=== PATIENT | female | born 1950 | race Caucasian/White ===

== ENCOUNTER 2021-08-04 07:30 | Day surgery (SDC) | payer OTHER, BC ==
[2021-07-30 13:00] VITALS: BMI 22.3
[2021-08-04] MEDS ORDERED: ceFAZolin SODIUM 1 GM VIAL ONE ×2 (08:56→09:33)
[2021-08-04] MEDS ORDERED: ERYTHROMYCIN 0.5% OPHTHALMIC OINTMENT 3.5 GM TUBE ONE (08:56)
[2021-08-04] MEDS ORDERED: TETRACAINE 0.5% OPHTH SOLN 2 ML BOTTLE ONE (08:56)
[2021-08-04] MEDS ORDERED: LIDOCAINE 1%/EPI 1:100000 (20 ML MULTI DOSE VIAL) ONE (08:57)
[2021-08-04] MEDS ORDERED: BUPIVACAINE HCL 50 ML ONE (08:57)
[2021-08-04] MEDS ORDERED: POVIDONE-IODINE 5% OPHTHALMIC PREP 30 ML SOLUTION ONE (08:57)
[2021-08-04] MEDS ORDERED: DEXAMETHASONE SOD PHOSPHATE 4 MG/1 ML VIAL ONE (09:33)
[2021-08-04] MEDS ORDERED: PROPOFOL 20 ML ONE ×2 (09:33)
[2021-08-04] MEDS ORDERED: MIDAZOLAM HCL 2 MG/2 ML SINGLE DOSE VIAL ONE ×2 (09:33→10:32)
[2021-08-04] MEDS ORDERED: ONDANSETRON 4 MG/2 ML VIAL ONE (09:33)
[2021-08-04] MEDS ORDERED: KETOROLAC TROMETHAMINE 30 MG/1 ML VIAL ONE (09:33)
[2021-08-04] MEDS ORDERED: KETAMINE HCL 200 MG/20 ML VIAL ONE (11:25)
[2021-08-04] MEDS ORDERED: ONDANSETRON 4 MG/2 ML VIAL IVPUSH PRN (11:58)
[2021-08-04] MEDS ORDERED: oxyCODONE HCL 5 MG TABLET PO PRN (11:58)
[2021-08-04] MEDS ORDERED: ACETAMINOPHEN 325 MG TABLET (FP) PO PRN (11:58)
[2021-08-04 13:35] VITALS: TEMP 98.3
[2021-08-04 14:11] VITALS: BP 127/65; PULSE 88
== END 2021-08-04 14:05 | disposition home or self-care (01) ==
LOC: FASU 07:30
PROVIDERS: ATTEND Ophthalmology
PROC: 0W020ZZ Alteration of Face, Open Approach (ICD-10-PCS; 2021-08-04)
PROC: 08SR0ZZ Reposition Left Lower Eyelid, Open Approach (ICD-10-PCS; principal; 2021-08-04 09:59)
PROC: 08SQ0ZZ Reposition Right Lower Eyelid, Open Approach (ICD-10-PCS; 2021-08-04 09:59)
DX: H04.223 Epiphora due to insufficient drainage, bilateral (principal); H02.102 Unspecified ectropion of right lower eyelid; H02.105 Unspecified ectropion of left lower eyelid; H00.15 Chalazion left lower eyelid; H00.14 Chalazion left upper eyelid; H02.403 Unspecified ptosis of bilateral eyelids
CPT/HCPCS: 94760

== ENCOUNTER 2022-08-10 06:06 | Day surgery (SDC) | payer OTHER, BC ==
[2022-08-05 10:29] VITALS: BMI 21.7
[2022-08-10] MEDS ORDERED: BUPIVACAINE HCL/PF 0.5% (5MG/ML) 10 ML VIAL ONE (07:09)
[2022-08-10] MEDS ORDERED: TETRACAINE 0.5% OPHTH SOLN 2 ML BOTTLE ONE (07:09)
[2022-08-10] MEDS ORDERED: LIDOCAINE 1%-EPI 1:100,000 30 ML MDV IJ ONE (07:09)
[2022-08-10] MEDS ORDERED: POVIDONE-IODINE 5% OPHTHALMIC PREP 30 ML SOLUTION ONE (07:09)
[2022-08-10] MEDS ORDERED: ceFAZolin SODIUM 1 GM VIAL ONE ×2 (07:09→07:48)
[2022-08-10] MEDS ORDERED: ERYTHROMYCIN 0.5% OPHTHALMIC OINTMENT 3.5 GM TUBE ONE (07:09)
[2022-08-10] MEDS ORDERED: MIDAZOLAM HCL 2 MG/2 ML SINGLE DOSE VIAL ONE ×2 (07:18→09:01)
[2022-08-10] MEDS ORDERED: PROPOFOL 20 ML ONE ×2 (07:18→08:33)
[2022-08-10] MEDS ORDERED: ONDANSETRON 4 MG/2 ML VIAL ONE (07:46)
[2022-08-10] MEDS ORDERED: DEXAMETHASONE SOD PHOSPHATE 4 MG/1 ML VIAL ONE (07:46)
[2022-08-10] MEDS ORDERED: ONDANSETRON 4 MG/2 ML VIAL IVPUSH PRN (09:22)
[2022-08-10] MEDS ORDERED: LACTATED RINGERS SOLUTION 1,000 ML IV SCH (09:30)
[2022-08-10 09:44] VITALS: TEMP 97.1
[2022-08-10 09:56] VITALS: RESP 16
[2022-08-10] MEDS ORDERED: ACETAMINOPHEN 500 MG TABLET (FP) ONE (10:35)
[2022-08-10] MEDS ORDERED: oxyCODONE HCL 5 MG TABLET ONE (10:35)
[2022-08-10 10:54] VITALS: BP 112/62; PULSE 68
[2022-08-10] MEDS ORDERED: ACETAMINOPHEN 500 MG TABLET (FP) PO ONE (10:56)
[2022-08-10] MEDS ORDERED: oxyCODONE HCL 5 MG TABLET PO ONE (10:57)
== END 2022-08-10 10:49 | disposition home or self-care (01) ==
LOC: FASU 06:06
PROVIDERS: ATTEND Ophthalmology
PROC: 08SQ0ZZ Reposition Right Lower Eyelid, Open Approach (ICD-10-PCS; 2022-08-10)
PROC: 08SR0ZZ Reposition Left Lower Eyelid, Open Approach (ICD-10-PCS; principal; 2022-08-10 08:01)
DX: H02.102 Unspecified ectropion of right lower eyelid (principal); H04.201 Unspecified epiphora, right side; H04.5 Stenosis and insufficiency of lacrimal passages; H04.331 Acute lacrimal canaliculitis of right lacrimal passage; H11.823 Conjunctivochalasis, bilateral
CPT/HCPCS: 94760